=== PATIENT | female | born 1960 | race Caucasian/White ===

== ENCOUNTER 2016-11-12 08:57 | Day surgery (SDC) | payer BC ==
[2016-11-12] MEDS ORDERED: LIDOCAINE 2% MDV (20MG/ML) 20ML VIAL IV ONE (15:50)
[2016-11-12] MEDS ORDERED: MIDAZOLAM HCL 2MG/2ML VIAL IV ONE (15:50)
[2016-11-12] MEDS ORDERED: PROPOFOL 10 MG/ML VIAL IV ONE (15:50)
[2016-11-12] MEDS ORDERED: GLYCOPYRROLATE 0.2 MG/ML ML IV ONE (15:50)
--- NOTE | 2016-11-15 12:30 | Operative Note ---
DATE OF SURGERY: 11/12/2016 SURGEON: Alexa Wagner MD OPERATION: COLONOSCOPY. INDICATIONS: This is a 56-year-old female with family history of colon cancer who presented for screening colonoscopy. POSTOPERATIVE DIAGNOSIS: Normal colon. ANESTHESIA: Sedation is per Anesthesia. Pulse oximetry was monitored throughout the procedure to maintain O2 saturation of 90% or greater. Supplemental oxygen was administered via nasal cannula. Cardiac and vital signs were monitored throughout the duration of the procedure, and she did develop episodic bradycardia possibly due to vasovagal reaction. PROCEDURE: An Olympus PCF-180AL colonoscope was then inserted into the rectum under direct visualization. It was advanced to the cecum without difficulty. The ileocecal valve and appendiceal orifice were identified and photographed. The colonic mucosa was carefully examined upon introduction of the colonoscope. There were no lesions noted. The colonoscope was then withdrawn while carefully examining the colonic mucosal surfaces. No lesions were noted. In the rectum, retroflexion was performed and grade 1 internal hemorrhoids were noted. The colonoscope was then withdrawn and the procedure was terminated. The patient tolerated the procedure well without any immediate complications. She remained with stable vital signs and was transferred to the recovery room. RECOMMENDATIONS: 1. The patient should be on a high-fiber diet. 2. The patient is to have a repeat colonoscopy for screening in 5 years. Thank you for allowing me to participate in the care of your patient. CC: Dr. Zina CORNELL
== END 2016-11-12 11:07 | disposition home or self-care (01) ==
LOC: HOP 08:57
PROVIDERS: ATTEND Internal Medicine Gastroenterology
DX: Z12.11 Encounter for screening for malignant neoplasm of colon (principal); Z86.010 Personal history of colon polyps
CPT/HCPCS: 00810; G0105